=== PATIENT | male | born 1955 | race Native Hawaiian/Other Pacific Islander ===

== ENCOUNTER 2016-09-21 11:24 | Emergency (ER) | payer MEDICARE ==
[~2016-09-21] VITALS: Ht 185.4 cm; Wt 95.0 kg
[2016-09-21] MEDS ORDERED: CEPH500 PO (11:49)
[2016-09-21] MEDS ORDERED: CLIN300C3 PO (11:49)
[2016-09-21 12:19] LABS: BASOPHILS # (AUTO) 0.03 K/uL (0.00-0.20); BASOPHILS % (AUTO) 0.5 % (0.0-2.0); EOSINOPHILS # (AUTO) 0.75 K/uL (0.00-0.70); EOSINOPHILS % (AUTO) 11.44 % (1.0-6.0); HEMATOCRIT 32.3 % (41-53); HEMOGLOBIN 10.7 g/dL (13.5-17.5); LYMPHOCYTES # (AUTO) 0.9 K/uL (1.0-4.8); LYMPHOCYTES % (AUTO) 14.1 % (22.0-44.0); MEAN CORPUSCULAR HGB CONC 33.1 G/dL (31.0-37.0); MEAN CORPUSCULAR VOLUME 100 fL (80-100); MONOCYTES # (AUTO) 0.8 K/uL (0.1-1.0); MONOCYTES % (AUTO) 12.2 % (2.0-9.0); NEUTROPHILS # (AUTO) 4.1 K/uL (1.8-7.7); NEUTROPHILS % (AUTO) 61.8 % (40.0-70.0); PLATELET COUNT (AUTO) 165 K/uL (150-450); RED BLOOD CELL COUNT(AUTO) 3.24 MIL/uL (4.50-5.90); RED CELL DISTRIBUTION WIDTH 15.1 % (11.5-14.5); WHITE BLOOD COUNT (AUTO) 6.6 K/uL (4.5-11.0)
[2016-09-21 12:45] LABS: CALCIUM, TOTAL 8.7 mg/dL (8.8-10.5); CREATININE 11.57 mg/dL (0.60-1.30); POTASSIUM 4.7 mmol/L (3.5-5.1)
[2016-09-21 12:51] LABS: ALBUMIN 3.2 g/dL (3.4-5.0); TOTAL PROTEIN, SERUM 7.8 g/dL (6.4-8.2)
[2016-09-21] MEDS ORDERED: FOLI0.8T22 PO (13:25)
[2016-09-21] MEDS ORDERED: CARV3 PO (13:25)
[2016-09-21] MEDS ORDERED: ATEN25 PO (13:25)
[2016-09-21] MEDS ORDERED: LOVA20 PO (13:25)
[2016-09-21] MEDS ORDERED: RANI150T7 PO (13:25)
[2016-09-21] MEDS ORDERED: ALLO100T PO (13:25)
[2016-09-21] MEDS ORDERED: ASPI81 PO (13:25)
[2016-09-21 15:03] VITALS: BP 132/62
== END 2016-09-21 15:35 | disposition home or self-care (01) ==
LOC: EMS 11:30
DX: I13.2 Hypertensive heart and chronic kidney disease with heart failure and with stage 5 chronic kidney disease, or end stage renal disease (principal); E11.22 Type 2 diabetes mellitus with diabetic chronic kidney disease; N18.6 End stage renal disease; I50.9 Heart failure, unspecified; I48.91 Unspecified atrial fibrillation; R42 Dizziness and giddiness; Z99.2 Dependence on renal dialysis; Z79.82 Long term (current) use of aspirin
CPT/HCPCS: 82962; 93005; 99285